=== PATIENT | female | born 1985 | race Caucasian/White ===

== ENCOUNTER 2020-08-15 10:51 | Emergency (ER) | payer OTHER ==
[2020-08-15 10:56] VITALS: RESP 18; TEMP 98.5
--- NOTE | 2020-08-15 11:13 | ED ---
General Adult HPI - General Chief complaint: Alcohol Stated complaint: Alcohol Time Seen by Provider: 08/15/20 10:55 Source: patient, EMS, RN notes reviewed Mode of arrival: EMS Limitations: no limitations - History of Present Illness Initial comments: 34-year-old female with a past medical history of hypertension, chronic alcohol disorder presents to the emergency room for a chief complaint of alcohol intoxication. Patient was sent from [place]. When patient went today she was found at to have drank before she went. Patient reports that she drank about a pint of vodka. She usually drinks a fifth of vodka daily. Patient reports that [facility] sent her to the emergency room for detox.Patient has no other complaints at this time including shortness of breath, chest pain, abdominal pain, nausea or vomiting, headache, or visual changes. - Related Data Allergies Allergy/AdvReac Type Severity Reaction Status Date / Time No Known Allergies Allergy Verified 08/15/20 10:56 Review of Systems ROS Statement: Those systems with pertinent positive or pertinent negative responses have been documented in the HPI. ROS Other: All systems not noted in ROS Statement are negative. Past Medical History Past Medical History: Hypertension History of Any Multi-Drug Resistant Organisms: None Reported Past Surgical History: No Surgical Hx Reported Past Psychological History: Anxiety, Depression Smoking Status: Current every day smoker Past Alcohol Use History: Abuse, Daily Past Drug Use History: None Reported General Exam Limitations: no limitations General appearance: alert, in no apparent distress Head exam: Present: atraumatic, normocephalic, normal inspection Eye exam: Present: normal appearance, PERRL, EOMI. Absent: scleral icterus, conjunctival injection, periorbital swelling ENT exam: Present: normal exam, mucous membranes moist Neck exam: Present: normal inspection, full ROM. Absent: tenderness, meningismus, lymphadenopathy Respiratory exam: Present: normal lung sounds bilaterally. Absent: respiratory distress, wheezes, rales, rhonchi, stridor Cardiovascular Exam: Present: regular rate, normal rhythm, normal heart sounds. Absent: systolic murmur, diastolic murmur, rubs, gallop, clicks GI/Abdominal exam: Present: soft, normal bowel sounds. Absent: distended, tenderness, guarding, rebound, rigid Neurological exam: Present: alert, normal gait Course Vital Signs 08/15/20 10:52 Temperature 98.5 F Pulse Rate 95 Respiratory 18 Rate Blood Pressure 110/73 O2 Sat by Pulse 96 Oximetry - Reevaluation(s) Reevaluation #1: 08/15/20 11:50 Patient reevaluated, walked to the bathroom, eating a sandwich Medical Decision Making - Medical Decision Making Patient clinically sober at this time. Alert and oriented, sitting on the edge of the bed. She ambulates normally without assistance. I ambulated her to the bathroom without assessing patient and she did not stumble, walked in a straight line. Patient is eating and drinking in the emergency room. I discussed with the admission nurse and she states about 2 hours ago when she saw the patient she was not able to ambulate on her own. I discussed that at this time patient appears much better and I am recommending transfer back to [place]. They will pick patient up. I discussed with the nurse that if patient develops any worsening symptoms she can of course return to the emergency room at any time. Disposition Clinical Impression: History of alcohol use Disposition: HOME SELF-CARE Condition: Good Instructions (If sedation given, give patient instructions): Alcohol Intoxication (ED) Additional Instructions: Please take patient directly to [place]. If patient develops any worsening symptoms, is unable to ambulate, or develops withdrawal symptoms that cannot be managed return to the emergency room. Is patient prescribed a controlled substance at d/c from ED?: No Referrals: Markus Arenas MD [REFERRING] - 1-2 days Time of Disposition: 11:28
[2020-08-15 11:54] VITALS: BP 106/77; PULSE 93
== END 2020-08-15 12:11 | disposition home or self-care (01) ==
LOC: EC 10:51
DX: F10.129 Alcohol abuse with intoxication, unspecified (principal); F17.200 Nicotine dependence, unspecified, uncomplicated; Y90.9 Presence of alcohol in blood, level not specified
CPT/HCPCS: 99284